=== PATIENT | male | born 1955 | race Caucasian/White ===

== ENCOUNTER 2021-05-11 11:21 | Emergency (ER) | payer MEDICARE, OTHER ==
[~2021-05-11] VITALS: Ht 167.6 cm; Wt 66.6 kg
--- NOTE | 2021-05-11 11:45 | NUR ---
TASK RN: PT WHEELED BACK TO ROOM VIA WC. PT STATES HE HAS HAD SOB X2DAYS WITH WORSENING TODAY. PER PT SOB SUBSIDED ONCE ARRIVING TO ED. PT RESTING IN [facility], MONITORING IN PLACE, AREN AT THIS TIME, PRIMARY RN NADER AT BEDSIDE FOR EVAL.
[2021-05-11 12:23] LABS: BASOPHILS % (AUTO) 1 % (0-1); EOSINOPHILS % (AUTO) 2 % (1-7); LYMPHOCYTES % (AUTO) 24 % (22-44); MEAN CORPUSCULAR HEMOGLOBIN 31.2 pg (27.5-34.5); MEAN CORPUSCULAR HGB CONC 33.6 g/dL (33.2-36.2); MEAN PLATELET VOLUME 9.3 fL (7.4-10.4); MONOCYTES % (AUTO) 10 % (2-9); NEUTROPHILS % (AUTO) 63 % (42-75); PLATELET COUNT 259 x10^3/uL (130-400); RED BLOOD COUNT 4.95 x10^6/uL (4.38-5.82); RED CELL DISTRIBUTION WIDTH 14.6 % (9.4-14.8)
[2021-05-11 12:36] LABS: ALANINE AMINOTRANSFERASE 25 U/L (12-78); ALBUMIN 3.4 g/dL (3.4-5.0); ANION GAP 3 mmol/L (5-15); CALCIUM 8.8 mg/dL (8.5-10.1); CHLORIDE 112 mmol/L (98-107); CREATININE 1.66 mg/dL (0.7-1.3)
[2021-05-11 12:40] LABS: ALKALINE PHOSPHATASE 121 U/L (45-117); BILIRUBIN,TOTAL 0.5 mg/dL (0.2-1.0); TOTAL PROTEIN 7.4 g/dL (6.4-8.2); TROPONIN I 0.091 ng/mL (0.000-0.045)
[2021-05-11 13:03] VITALS: BP 154/76
--- NOTE | 2021-05-11 13:03 | NUR ---
DR. MC TO BEDSIDE. PT TO D/C HOME. RAMOS. AREN.
[2021-05-11] MEDS ORDERED: CLOPIDOGREL 75 MG TABLET ONE (13:17)
[2021-05-11] MEDS ORDERED: CLOPIDOGREL 75 MG TABLET PO ONE (13:30)
== END 2021-05-11 13:34 | disposition home or self-care (01) ==
LOC: ED 13:33
DX: R06.00 Dyspnea, unspecified (principal); I11.0 Hypertensive heart disease with heart failure; I50.9 Heart failure, unspecified; R94.31 Abnormal electrocardiogram [ECG] [EKG]; E78.5 Hyperlipidemia, unspecified; N28.9 Disorder of kidney and ureter, unspecified; R91.1 Solitary pulmonary nodule; I25.810 Atherosclerosis of coronary artery bypass graft(s) without angina pectoris; Z87.891 Personal history of nicotine dependence
CPT/HCPCS: 36415; 71045; 80053; 83880; 84484; 85025; 93005; 99283